=== PATIENT | female | born 1995 | race Caucasian/White ===

== ENCOUNTER 2019-05-04 15:34 | Emergency (ER) | payer MEDICAID ==
[2019-05-04 16:53] VITALS: BP 117/76
[2019-05-04] MEDS ORDERED: IPRATROPIUM/ALBUTEROL 0.5-2.5 MG/3 ML AMPUL NEB ONE (17:46)
--- NOTE | 2019-05-04 17:49 | ER Document Report ---
HPI - HPI Patient complains to provider of: Difficulty breathing Time Seen by Provider: 05/04/19 17:43 Onset: Other - 2 days Pain Level: 3 Context: This 23-year-old female with history of asthma presents today with reports that she is having trouble getting a deep breath. Reports she uses an inhaler several times without relief of symptoms. Her inhaler 1 year ago. She denies fever vomiting diarrhea. Reports she is never been hospitalized or intubated for this. Associated Symptoms: None Exacerbated by: Denies Relieved by: Denies Similar symptoms previously: Yes Recently seen / treated by doctor: No - REPRODUCTIVE Reproductive: DENIES: : Past Medical History - General Information source: Patient Last Menstrual Period: Nexplanon - Social History Smoking Status: Unknown if Ever Smoked Cigarette use (# per day): No Frequency of alcohol use: None Drug Abuse: None Lives with: Family Family History: None Patient has suicidal ideation: No Patient has homicidal ideation: No Pulmonary Medical History: Reports: Hx Asthma Surgical Hx: Negative Vertical Provider Document - CONSTITUTIONAL Agree With Documented VS: Yes Exam Limitations: No Limitations General Appearance: WD/WN, No Apparent Distress - INFECTION CONTROL TRAVEL OUTSIDE OF THE [place] IN LAST 30 DAYS: No - HEENT HEENT: Atraumatic, Normocephalic - NECK Neck: Normal Inspection, Supple. negative: Lymphadenopathy-Right - RESPIRATORY Respiratory: No Respiratory Distress - CARDIOVASCULAR Cardiovascular: Regular Rate, Regular Rhythm - GI/ABDOMEN Gastrointestinal: Abdomen Soft, Abdomen Non-Tender - MUSCULOSKELETAL/EXTREMETIES Musculoskeletal/Extremeties: MAEW, FROM - NEURO Level of Consciousness: Awake, Alert, Appropriate Motor/Sensory: No Motor Deficit - DERM Integumentary: Warm, Dry Course - Re-evaluation Re-evalutation: 05/04/19 18:28 23-year-old female with history of asthma presents emergency department with complaints of difficulty breathing. She received 1 DuoNeb reports she is breathing much better. Respiratory rate even nonlabored no wheeze noted. Patient will be discharged with an inhaler from here. She was also instructed to follow-up with the primary care within the week. She was also instructed to return here for difficulty breathing concerns. She verbalized understanding to all instructions. Dictation of this chart was performed using voice recognition software; therefore, there may be some unintended grammatical errors. - Vital Signs Vital signs: Temp Pulse Resp BP Pulse Ox 98.8 F 45 L 16 117/76 98 05/04/19 17:43 05/04/19 16:51 05/04/19 17:43 05/04/19 16:51 05/04/19 17:43 Discharge - Discharge Clinical Impression: Breathing difficulty Condition: Stable Disposition: HOME, SELF-CARE Instructions: Bronchodilators ([facility]) Additional Instructions: *You have been evaluated for difficulty breathing with history of asthma *Use inhaler as prescribed *Monitor your temperature, take Tylenol as indicated *Follow up with a primary care provider within 1 week for recheck. *Return to ED for worsening condition, changes, needs Referrals: LAILA DUGGAN CNM [NO LOCAL MD] - Follow up in 1 week
[2019-05-04] MEDS ORDERED: ALBUTEROL SULFATE HFA (90 MCG/PUFF) 8 GM MDI (1 MDI/ER DISP) IH ONE (18:28)
--- NOTE | 2019-05-05 00:26 | EKG REPORT ---
SEVERITY:- ABNORMAL ECG - SINUS RHYTHM PROBABLE LEFT ATRIAL ABNORMALITY LOW VOLTAGE IN FRONTAL LEADS SINUS ARRHYTHMIA : Confirmed by: Marita Palacios 05-May-2019 00:26:25
== END 2019-05-04 18:44 | disposition home or self-care (01) ==
LOC: ER 15:34
DX: J45.909 Unspecified asthma, uncomplicated (principal); Z97.5 Presence of (intrauterine) contraceptive device
CPT/HCPCS: 93005; 94640; 99284; 93010; J3490; J7620